=== PATIENT | male | born 1980 | race Caucasian/White ===

== ENCOUNTER 2016-11-12 11:14 | Emergency (ER) | payer OTHER ==
[2016-11-12 11:40] VITALS: BP 128/74
--- NOTE | 2016-11-12 12:14 | UC ---
Abdominal Pain Male HPI - HPI Summary HPI Summary: 36 yo male with the onset this am of intermittent crampy abd pain (lasts 1-3 minutes) Has had 7 episodes of diarrhea no nausea no vomiting recently hiked/camped in [place] used an old water filter - History of Current Complaint Chief Complaint: UCGI Stated Complaint: STOMACH CRAMPING CHILLS Time Seen by Provider: 11/12/16 11:50 Hx Obtained From: Patient Onset/Duration: Sudden Onset, Lasting Hours Timing: Intermittent Episodes Lasting: Severity Initially: Mild Severity Currently: Moderate Pain Intensity: 0 - moderate at times Pain Scale Used: 0-10 Numeric Location: Diffuse Radiates: No Character: Cramping Aggravating Factor(s):: Nothing Alleviating Factor(s): Spontaneous Resolution Associated Signs And Symptoms: Positive: Diarrhea - Allergies/Home Medications Allergies/Adverse Reactions: Allergies Allergy/AdvReac Type Severity Reaction Status Date / Time Sulfamethoxazole Allergy Rash Verified 11/12/16 11:40 w/Trimethoprim [From Bactrim] PMH/Surg Hx/FS Hx/Imm Hx Previously Healthy: Yes - Surgical History Surgical History: None - Family History Known Family History: Positive: Hypertension - Social History Alcohol Use: Daily Alcohol Amount: beer Substance Use Type: None Smoking Status (MU): Never Smoked Tobacco - Immunization History Most Recent Tetanus Shot: UNSURE Review of Systems Constitutional: Negative Skin: Negative Eyes: Negative ENT: Negative Respiratory: Negative Cardiovascular: Negative Gastrointestinal: Abdominal Pain, Diarrhea Genitourinary: Negative Motor: Negative Neurovascular: Negative Musculoskeletal: Negative Neurological: Negative Psychological: Negative All Other Systems Reviewed And Are Negative: Yes Physical Exam Triage Information Reviewed: Yes Appearance: Well-Appearing, No Pain Distress, Well-Nourished Vital Signs: Initial Vital Signs Temp 97.9 F 11/12/16 11:30 Pulse 68 11/12/16 11:30 Resp 14 11/12/16 11:30 BP 128/74 11/12/16 11:30 Pulse Ox 98 11/12/16 11:30 Vital Signs Reviewed: Yes Eyes: Positive: Conjunctiva Clear ENT: Positive: Hearing grossly normal. Negative: Nasal congestion, Nasal drainage, Trismus, Muffled/hoarse voice Dental Exam: Normal Neck: Positive: Supple, Nontender, No Lymphadenopathy Respiratory: Positive: Lungs clear, Normal breath sounds, No respiratory distress Cardiovascular: Positive: RRR, No Murmur Abdomen Description: Positive: Nontender, Soft. Negative: CVA Tenderness (R), CVA Tenderness (L), Distended, Guarding Bowel Sounds: Positive: Present, Hyperactive Musculoskeletal: Positive: ROM Intact, No Edema Neurological Exam: Normal Psychological Exam: Normal Skin Exam: Normal Abd Pain Male Course/Dx - Differential Dx/Clinical Impression Provider Diagnoses: acute diarrhea Discharge - Discharge Plan Condition: Stable Disposition: HOME Patient Education Materials: Acute Diarrhea (ED) Referrals: Leah Gross MD [Primary Care Provider] -
--- NOTE | 2016-11-14 13:34 | UC ---
Progress - Progress Note Progress Note: STOOL CX POSITIVE FOR CAMPYLOBACTER JEJUNI. TREATMENT CONTROVERSIAL BUT CAN USE ERYTHOMYCIN THAT I WILL CALL INTO THE [facility].
== END 2016-11-12 12:46 | disposition home or self-care (01) ==
LOC: UCCORT 11:14
DX: R19.7 Diarrhea, unspecified (principal); Z88.2 Allergy status to sulfonamides
CPT/HCPCS: 87045; 87046; 87077; 87328; 87329; 87899; 99211; G0463

== ENCOUNTER 2019-06-26 19:32 | Emergency (ER) | payer OTHER ==
--- NOTE | 2019-06-26 19:40 | UC ---
FLU HPI - HPI Summary HPI Summary: 38 yo male presents with cough. He tells me that for the last 2 days he has had an intermittently productive cough. Today developed nausea, vomited x1, fatigue , and watery diarrhea ~8-10times. States tmax 101F. He has been taking mucinex with little relief. Denies sinus symptoms, sore throat, SOB, chest pain, dysuria. Has been [id number] at home with his family. No family members currently ill - son had strep a few weeks ago. No recent travel He denies known positive exposure to COVID. He does not smoke. - History of Current Complaint Stated Complaint: RESP Time Seen by Provider: 06/26/19 19:39 Hx Obtained From: Patient Onset/Duration: Sudden Onset Severity Currently: Moderate Severity Initially: Mild Pain Intensity: 5 Pain Scale Used: 0-10 Numeric - Allergy/Home Medications Allergies/Adverse Reactions: Allergies Allergy/AdvReac Type Severity Reaction Status Date / Time sulfamethoxazole Allergy Rash Verified 06/26/19 19:42 [From Bactrim] trimethoprim [From Bactrim] Allergy Rash Verified 06/26/19 19:42 Home Medications: Home Medications Escitalopram * [Lexapro 10 mg (NF)] 10 mg PO DAILY 10/03/12 [History Confirmed 06/26/19] guaiFENesin [Mucinex] 1 dose PO ONCE PRN 06/26/19 [History Confirmed 06/26/19] PMH/Surg Hx/FS Hx/Imm Hx Psychological History: Anxiety, Depression - Surgical History Surgical History: None - Family History Known Family History: Positive: Hypertension - Social History Lives: With Family Alcohol Use: Occasionally Alcohol Amount: beer Substance Use Type: None Smoking Status (MU): Never Smoked Tobacco - Immunization History Most Recent Tetanus Shot: UNSURE Review of Systems All Other Systems Reviewed And Are Negative: No Constitutional: Positive: Fever, Fatigue, Other - Body aches Skin: Positive: Negative Eyes: Positive: Negative ENT: Positive: Negative Respiratory: Positive: Cough Cardiovascular: Positive: Negative Gastrointestinal: Positive: Vomiting, Diarrhea, Nausea Genitourinary: Positive: Negative Neurological/Mental Status: Positive: Negative Psychological: Positive: Negative Physical Exam - Summary Physical Exam Summary: GENERAL: NAD. Appears mildly fatigued. SKIN: No rashes, sores, lesions, or open wounds. HEENT: Head: AT/NC Eyes: EOM intact. Conjunctiva clear without inflammation or discharge. Ears: Hearing grossly normal. TMs intact, no bulging, erythema, or edema. Nose: Nasal mucosa pink and moist. NTTP maxillary and frontal sinus. Throat: Posterior oropharynx without exudates, erythema, or tonsillar enlargement. Uvula midline. NECK: Supple. Nontender. No lymphadenopathy. CHEST: CTAB. No r/r/w. No accessory muscle use. Breathing comfortably and in no distress. CV: RRR. Pulses intact. Cap refill <2seconds ABDOMEN: Soft. NTTP. No distention or guarding. No CVA tenderness. Bowel sounds present NEURO: Alert. PSYCH: Age appropriate behavior. Triage Information Reviewed: Yes Vital Signs: Vital Signs: Temp Pulse Resp BP Pulse Ox 100.1 F 85 18 106/66 97 06/26/19 20:03 06/26/19 20:03 06/26/19 20:03 06/26/19 20:03 06/26/19 20:03 Laboratory Tests 06/26/19 06/26/19 19:58 20:01 Influenza A (Rapid) Negative Influenza B (Rapid) Negative Group A Strep Rapid Negative Vital Signs Reviewed: Yes Flu Course/Dx - Course Course Of Treatment: POC strep and flu negative. Exam performed utilizing CDC recommended PPE. You are being tested for COVID-19. You need to quarantine yourself in a bedroom and bathroom only you are using. You may not leave the house. [facility] will contact you and notify of results when they are available. Advised to be on home isolation until cleared by the health department. Go to ED for increased SOB or any difficulty breathing - new or worsening symptoms. Advised to rest and drink clear fluids. Advance diet as tolerated. - Differential Dx/Diagnosis Provider Diagnosis: Cough, Loose stools Discharge ED - Sign-Out/Discharge Documenting (check all that apply): Patient Departure All imaging exams completed and their final reports reviewed: No Studies - Discharge Plan Condition: Stable Disposition: HOME Patient Education Materials: Viral Syndrome (ED) Forms: COVID-19 Tested & Isolation Referrals: Leah Gross MD [Primary Care Provider] - Additional Instructions: FLU AND STREP TEST NEGATIVE You are being tested for COVID-19. You need to quarantine yourself in a bedroom and bathroom only you are using. You may not leave the house. [facility] will contact you and notify of results when they are available. Advised to be on home isolation until cleared by the health department (3-6 days likely) Go to ED for increased SOB or any difficulty breathing - new or worsening symptoms. - Billing Disposition and Condition Condition: STABLE Disposition: Home
[2019-06-26 20:04] VITALS: BP 106/66
[2019-06-26 20:12] LABS: Influenza A Molecular Negative (Negative); Influenza B Molecular Negative (Negative)
== END 2019-06-26 20:26 | disposition home or self-care (01) ==
LOC: UCEAST 19:32
DX: R05 Cough (principal); R19.7 Diarrhea, unspecified; R50.9 Fever, unspecified; R11.2 Nausea with vomiting, unspecified; R53.83 Other fatigue; Z20.828 Contact with and (suspected) exposure to other viral communicable diseases; F41.9 Anxiety disorder, unspecified; F32.9 Major depressive disorder, single episode, unspecified; Z79.899 Other long term (current) drug therapy; Z88.2 Allergy status to sulfonamides
CPT/HCPCS: 87651; 99212; G0463; U0002